=== PATIENT | male | born 1940 | race Caucasian/White ===

== ENCOUNTER → 2021-05-25 08:33 | Outpatient (BNVA) | payer SELFPAY | PROVIDERS: PCP Internal Medicine; Visit Provider Internal Medicine | DX: Z02.79 Encounter for issue of other medical certificate (principal) ==

== ENCOUNTER → 2021-12-04 09:56 | Outpatient (BNVA) | payer SELFPAY | PROVIDERS: PCP Internal Medicine; Visit Provider Internal Medicine | DX: Z02.79 Encounter for issue of other medical certificate (principal) ==

== ENCOUNTER → 2022-05-30 09:59 | Outpatient (BNVA) | payer SELFPAY | PROVIDERS: PCP Internal Medicine; Visit Provider Internal Medicine | DX: Z02.79 Encounter for issue of other medical certificate (principal) ==

== ENCOUNTER → 2022-11-15 10:49 | Outpatient (BNVA) | payer SELFPAY | PROVIDERS: PCP Internal Medicine; Visit Provider Internal Medicine | DX: Z02.79 Encounter for issue of other medical certificate (principal) ==